=== PATIENT | male | born 1950 | race African-American/Black ===

== ENCOUNTER 2016-04-25 19:34 | Inpatient (IN) | payer BC, OTHER ==
[~2016-04-25] VITALS: Ht 167.6 cm; Wt 102.0 kg
[2016-04-25] MEDS ORDERED: ACETAMINOPHEN 325 MG TAB PO ONE (20:00)
[2016-04-25 20:42] LABS: DEFINITIVE VIEW TRANSMISSION; Hematocrit 33.4 % (41.0-53.0); Hemoglobin 10.9 g/dL (13.5-17.5); Mean Corpuscular Hemoglobin 27.4 pg (28.0-32.0); Mean Corpuscular Hgb Conc. 32.5 g/dL (32.0-36.0); Mean Corpuscular Volume 84.1 fL (80.0-100.0); Mean Platelet Volume 9.5 fL (7.4-10.4); Platelet Count (auto) 329 10^3/uL (140-450); Reticulocyte Count 3.63 % (0.5-1.5); White Blood Cell 23.2 10^3/uL (4.4-10.8)
[2016-04-25 20:52] LABS: Metamyelocytes % 0; Myelocytes % 0; Promyelocytes % 0; Reactive Lymphocytes 0; Red Cell Distribution Width 21.7 % (11.6-16.0)
[2016-04-25 21:00] LABS: Albumin 3.8 g/dL (3.4-5.0); BUN/Creatinine Ratio 17.4; Bilirubin, Total 0.9 mg/dL (0.2-1.0); Calcium 8.9 mg/dL (8.5-10.1); Magnesium 2.2 mg/dL (1.6-2.6); Potassium 4.7 mmol/L (3.5-5.1); Total Protein 8.7 g/dL (6.4-8.2)
[2016-04-25 21:05] LABS: Anisocytosis Marked; Ovalocytes FEW; Platelet Estimate Adequate
[2016-04-25] MEDS ORDERED: IPRATROPIUM BROM 0.5 MG/2.5ML INH SOL NEB ONE (21:15)
[2016-04-25] MEDS ORDERED: ALBUTEROL SULF 2.5 MG/0.5ML(0.5%) NEB SOLN NEB ONE (21:15)
[2016-04-25 21:25] LABS: B-Type Natriuretic Peptide 25.7 pg/mL (0-100)
[2016-04-25 21:28] LABS: Temperature: 22.5 C (20.0-25.0)
[2016-04-25] MEDS ORDERED: cefTRIAXone 1GM/50ML D5W 50 ML IV ONE ×2 (21:36→21:45)
[2016-04-25] MEDS ORDERED: FOLIC ACID 1 MG in D5W 5% 50 ML IV ONE (21:45)
[2016-04-25] MEDS ORDERED: SODIUM CHLORIDE 0.9% 1,000 ML IV ONE (21:45)
[2016-04-25] MEDS ORDERED: IBUPROFEN 600 MG TAB PO ONE (21:45)
[2016-04-25] MEDS ORDERED: methylPREDNISolone SOD SUCC 125 MG/2 ML VL IV ONE (22:45)
[2016-04-25 23:19] LABS: Urine RBC None Seen /hpf (0 - 3)
[2016-04-25 23:32] LABS: Urine Bilirubin Negative (Negative); Urine Blood Negative /uL (Negative); Urine Color Yellow (Yellow); Urine Glucose Normal (Normal); Urine Ketone Negative (Negative); Urine Nitrite Negative (Negative); Urine Urobilinogen Normal (Negative); Urine pH 5.5 (5.0-8.0)
[2016-04-26] VITALS (7 sets, daily range): BP systolic 113–134; BP diastolic 56–72
[2016-04-26] MEDS ORDERED: LACTULOSE 20Gm/30ML SOLN PO PRN (01:15)
[2016-04-26] MEDS ORDERED: AZITHROMYCIN 500MG/D5W 250ML 250 ML IV ONE (01:15)
[2016-04-26] MEDS ORDERED: FURO40TA4 PO (01:35)
[2016-04-26] MEDS ORDERED: LOSA100T27 PO (01:35)
[2016-04-26] MEDS ORDERED: AMLO10TA2 PO (01:35)
[2016-04-26] MEDS: SODIUM CHLORIDE 0.9% 1,000 ML IV SCH ×2 (01:41→15:28)
[2016-04-26] MEDS: IPRATROPIUM BROM 0.5 MG/2.5ML INH SOL NEB SCH ×6 (02:24→22:15)
[2016-04-26] MEDS: ALBUTEROL SULF 2.5 MG/0.5ML(0.5%) NEB SOLN NEB SCH ×6 (02:24→22:14)
[2016-04-26] MEDS: SODIUM CHLOR 0.9% PF (SALINE LOCK) 10ML VIAL IV SCH ×3 (06:23→21:19)
[2016-04-26] MEDS: cefTRIAXone 1GM/50ML D5W 50 ML IV SCH (08:48)
[2016-04-26] MEDS: methylPREDNISolone SOD SUCC 40 MG/ML VL IV SCH ×2 (08:48→20:04)
[2016-04-26] MEDS: PANTOPRAZOLE SODIUM 40 MG/10 ML VIAL IV SCH (09:33)
[2016-04-26] MEDS: ENOXAPARIN SOD 40 MG/0.4 ML SYRINGE SC SCH (09:33)
[2016-04-26] MEDS: amLODIPine BESYLATE 5 MG TAB PO SCH (09:34)
[2016-04-26] MEDS: FUROSEMIDE 40 MG/4 ML VIAL IV SCH (09:34)
[2016-04-26] MEDS: LOSARTAN POTASSIUM 50 MG TAB PO SCH (09:35)
[2016-04-26] MEDS: NEOMYCIN-POLYM-HC 1% OTIC(EAR) SOLN 10ML RIGHT EAR SCH (17:29)
[2016-04-26] MEDS ORDERED: AZITHROMYCIN 500MG/D5W 250ML 250 ML IV SCH (22:00)
[2016-04-27] MEDS: IPRATROPIUM BROM 0.5 MG/2.5ML INH SOL NEB SCH ×4 (02:08→14:08)
[2016-04-27] MEDS: ALBUTEROL SULF 2.5 MG/0.5ML(0.5%) NEB SOLN NEB SCH ×4 (02:08→14:08)
[2016-04-27] MEDS: NEOMYCIN-POLYM-HC 1% OTIC(EAR) SOLN 10ML RIGHT EAR SCH ×3 (02:29→12:00)
[2016-04-27 05:00] VITALS: BP 125/37
[2016-04-27] MEDS: SODIUM CHLOR 0.9% PF (SALINE LOCK) 10ML VIAL IV SCH (06:02)
[2016-04-27 07:21] LABS: DEFINITIVE VIEW TRANSMISSION; Hematocrit 30.4 % (41.0-53.0); Hemoglobin 9.9 g/dL (13.5-17.5); Mean Corpuscular Hemoglobin 27.3 pg (28.0-32.0); Mean Corpuscular Hgb Conc. 32.6 g/dL (32.0-36.0); Mean Corpuscular Volume 83.5 fL (80.0-100.0); Mean Platelet Volume 9.4 fL (7.4-10.4); Platelet Count (auto) 383 10^3/uL (140-450); White Blood Cell 25.6 10^3/uL (4.4-10.8)
[2016-04-27 07:32] LABS: Albumin 2.9 g/dL (3.4-5.0); Bilirubin, Total 0.4 mg/dL (0.2-1.0); Calcium 8.4 mg/dL (8.5-10.1); Potassium 4.6 mmol/L (3.5-5.1); Total Protein 7.4 g/dL (6.4-8.2)
[2016-04-27 07:37] LABS: Red Cell Distribution Width 21.6 % (11.6-16.0)
[2016-04-27 07:38] LABS: Metamyelocytes % 0; Myelocytes % 0; Promyelocytes % 0; Reactive Lymphocytes 0
[2016-04-27] MEDS: methylPREDNISolone SOD SUCC 40 MG/ML VL IV SCH (07:52)
[2016-04-27] MEDS: cefTRIAXone 1GM/50ML D5W 50 ML IV SCH (08:56)
[2016-04-27 09:00] VITALS: BP 120/50
[2016-04-27] MEDS: ENOXAPARIN SOD 40 MG/0.4 ML SYRINGE SC SCH (10:03)
[2016-04-27] MEDS: PANTOPRAZOLE SODIUM 40 MG/10 ML VIAL IV SCH (10:03)
[2016-04-27] MEDS: FUROSEMIDE 40 MG/4 ML VIAL IV SCH (10:03)
[2016-04-27] MEDS: LOSARTAN POTASSIUM 50 MG TAB PO SCH (10:04)
[2016-04-27] MEDS: amLODIPine BESYLATE 5 MG TAB PO SCH (10:04)
[2016-04-27 10:56] LABS: Giant Platelets Few; Ovalocytes FEW; Platelet Estimate Adequate; Tear Drop Cells FEW
[2016-04-27 10:57] LABS: Anisocytosis Moderate
[2016-04-27 13:00] VITALS: BP 115/58
[2016-04-27 13:45] VITALS: BP 120/50
== END 2016-04-27 14:45 | disposition home or self-care (01) | DRG 871 ==
LOC: ER 19:40 → TELE 19:41 → TELE-WESTW 04-26 02:29
PROVIDERS: ADMIT Family Medicine; ATTEND Family Medicine
DX: A41.9 Sepsis, unspecified organism (principal); J18.9 Pneumonia, unspecified organism; I50.21 Acute systolic (congestive) heart failure; J44.0 Chronic obstructive pulmonary disease with (acute) lower respiratory infection; J44.1 Chronic obstructive pulmonary disease with (acute) exacerbation; N17.9 Acute kidney failure, unspecified; R65.20 Severe sepsis without septic shock; I11.0 Hypertensive heart disease with heart failure; D57.1 Sickle-cell disease without crisis; E66.01 Morbid (severe) obesity due to excess calories; J20.9 Acute bronchitis, unspecified; J45.909 Unspecified asthma, uncomplicated; Z87.891 Personal history of nicotine dependence; Z68.36 Body mass index [BMI] 36.0-36.9, adult
CPT/HCPCS: 36415; 71010; 71020; 80053; 80061; 81001; 83605; 83735; 83880; 84484; 85007; 85027; 85045; 87040; 87086; 93005; 94640; 96365; 96367; 96368; 96375; C9113; J0696; J7060